=== PATIENT | female | born 1980 | race Caucasian/White ===

== ENCOUNTER → 2018-10-28 10:29 | Outpatient (CLI) | payer OTHER, SELFPAY ==
--- NOTE | 2018-10-28 10:31 | DI.US.S_ITS ---
PROCEDURE: US OB <= 14 WEEKS FETUS INDICATIONS: DATING AND VIABILITY OUTSIDE/PRIOR DATING DATA: Last menstrual period (LMP): 08/10/18. LMP-based estimated date of delivery (DANA): 05/17/19. First dating scan (date and location): 10/28/18. Estimated date of delivery (DANA) from first dating scan: 06/10/19. TECHNIQUE: Real-time scanning was performed of the fetus and maternal pelvic organs, with image documentation. Endovaginal scanning was also performed to better visualize the fetus and maternal ovaries. COMPARISON: None. FINDINGS: Embryo: Single intrauterine gestation is seen with fetus in your sac seen. [place]-rump length measures 1.4 cm with estimated gestational age of 7 weeks 5 days. No heart tone is seen. There is no subchorionic hematoma. Cervix is closed and measures 3.8 cm in length. Measurement variability in dating: +/- 4 weeks by LMP, +/- 7 days by mean sac diameter (use before 6 weeks gestation if crown-rump length not able to be measured), +/- 5 days by crown-rump length (up to 8 weeks 6 days gestation), +/- 7 days by crown-rump length (up to 13 weeks 6 days gestation). Maternal organs: Left ovary is visualized and is within normal limits. Globus pallidus cyst in right ovary is seen. No gross ectopic gestational sac.. Limited images through the kidneys demonstrate no hydronephrosis. IMPRESSION: 1. Finding is suggestive of intrauterine demise. No heart rate is detected. 2. Possible corpus luteum in right ovary. No gross solid apparent ovarian lesion or ectopic gestational sac. 3. Cervix is closed, cervical canal measures 3.8 cm in length. Dictated by: Сергей Montes M.D. on 10/28/2018 at 12:13 Approved by: Сергей Montes M.D. on 10/28/2018 at 12:16
== END ==
PROVIDERS: PCP Registered Nurse; Visit Provider Obstetrics & Gynecology
DX: O36.80X0 Pregnancy with inconclusive fetal viability, not applicable or unspecified (principal); Z3A.01 Less than 8 weeks gestation of pregnancy
CPT/HCPCS: 76801; 76830

== ENCOUNTER → 2018-11-08 15:08 | Outpatient (CLI) | payer OTHER, SELFPAY ==
--- NOTE | 2018-11-08 15:10 | DI.US.S_ITS ---
PROCEDURE: US OB <= 14 WEEKS FETUS INDICATIONS: Viability US OUTSIDE/PRIOR DATING DATA: Last menstrual period (LMP): 08/10/18. LMP-based estimated date of delivery (DANA): 05/17/19. First dating scan (date and location): 10/28/18. Estimated date of delivery (DANA) from first dating scan: 06/10/19. TECHNIQUE: Real-time scanning was performed of the fetus and maternal pelvic organs, with image documentation. Endovaginal scanning was also performed to better visualize the fetus and maternal ovaries. COMPARISON: [facility], , US OB <= 14 WEEKS FETUS, 10/28/2018, 10:51. FINDINGS: Embryo: [place]-rump length measures 1.4 cm corresponding to 7 weeks 4 days. No heart tones are identified. Measurement variability in dating: +/- 4 weeks by LMP, +/- 7 days by mean sac diameter (use before 6 weeks gestation if crown-rump length not able to be measured), +/- 5 days by crown-rump length (up to 8 weeks 6 days gestation), +/- 7 days by crown-rump length (up to 13 weeks 6 days gestation). Maternal organs: [place]nex[place] within normal limits.. Limited images through the kidneys demonstrate no hydronephrosis. IMPRESSION: demise at roughly 7 weeks 4 days by crown-rump length. No heart tone seen. Dictated by: Balta Rooney Alejandra Interpreted: Сергей Montes MD on 11/08/2018 at 16:41 Approved by: Сергей Montes M.D. on 11/08/2018 at 18:09
== END ==
PROVIDERS: PCP Registered Nurse; Visit Provider Obstetrics & Gynecology
DX: O02.1 Missed abortion (principal)
CPT/HCPCS: 76801; 76817

== ENCOUNTER → 2021-11-04 15:11 | Outpatient (CLI) | payer OTHER, SELFPAY ==
--- NOTE | 2021-11-04 | DI.US.S_ITS ---
PROCEDURE: US PELVIC COMPLETE INDICATIONS: RIGHT LOWER QUADRANT PAIN TECHNIQUE: Real-time scanning was performed of the pelvic organs, with image documentation. Additional endovaginal scanning was necessary due to incomplete visualization of the adnexal and endometrial structures by transabdominal scanning. COMPARISON: None. FINDINGS: Uterus: Uterus is anteverted and normal in size at 8.9 x 5.8 x 7 cm. The endometrial stripe is poorly defined, with heterogeneous margins. There is an 11 mm intramural fibroid seen along the mid uterus anteriorly. Ovaries: The ovaries are overall not well seen. The right ovary measures 2.8 x 2.4 x 3.2 cm. The left ovary measures 3.3 x 2.1 x 2 cm. The ovaries have a normal sonographic appearance. No adnexal masses are seen. Other: A mild amount of free pelvic fluid is seen, which is considered to be within physiologic limits. IMPRESSION: A cause of right lower quadrant pain is not seen. Poorly defined endometrial stripe, which may be related to adenomyosis. - If clinically appropriate, please consider a follow-up gynecological protocol MRI (without and with contrast) for further evaluation (assuming that there is no contraindication). 11 mm uterine fibroid incidentally noted anteriorly. We strive to produce accurate, complete, and clear reports of imaging services. To assist us in improving patient care, this report was composed using standard report templates and voice recognition software. Therefore, it may contain abnormal punctuation, insertions and/or omissions. Occasional wrong-word or sound-alike substitutions may occur. Though we review the report and make efforts to correct it, we do recommend that the report be read carefully in proper context to recognize any text inaccuracies. Dictated by: Juan Chung M.D. on 11/04/2021 at 16:02 Approved by: Juan Chung M.D. on 11/04/2021 at 16:04
== END ==
PROVIDERS: PCP Registered Nurse
DX: R10.31 Right lower quadrant pain (principal); D25.1 Intramural leiomyoma of uterus
CPT/HCPCS: 76830; 76856